=== PATIENT | female | born 1945 | race Caucasian/White ===

== ENCOUNTER → 2017-03-02 | Outpatient (CLI) | payer MEDICARE, BC ==
[2011-12-13 22:40] VITALS: BP 145/75
[~2017-03-02] MED LIST: CALCIUM 600600 M2 PO; DUO-KAPS1 CAP PO; FLORINEF ACETA0.1 MG PO; LEVOTHYROXINE0.1 MG PO; LEXAPRO5 MG PO; MIDODRINE HCL5 MG PO; NORCO 325 MG-51 TA1 PO; VITAMIN D1000 IU PO
== END ==
LOC: LAB 15:09
DX: J30.9 Allergic rhinitis, unspecified (principal)

== ENCOUNTER → 2017-07-14 | Outpatient (CLI) | payer MEDICARE, BC ==
[2011-12-13 22:40] VITALS: BP 145/75
== END ==
LOC: LAB 11:50
DX: I49.5 Sick sinus syndrome (principal); C50.919 Malignant neoplasm of unspecified site of unspecified female breast; E78.2 Mixed hyperlipidemia; E03.4 Atrophy of thyroid (acquired); M81.0 Age-related osteoporosis without current pathological fracture; Z00.00 Encounter for general adult medical examination without abnormal findings; R55 Syncope and collapse

== ENCOUNTER → 2017-07-21 | Outpatient (CLI) | payer MEDICARE, BC ==
[2011-12-13 22:40] VITALS: BP 145/75
== END ==
LOC: RAD 09:01
DX: R19.04 Left lower quadrant abdominal swelling, mass and lump (principal)

== ENCOUNTER → 2017-09-22 | Day surgery (SDC) | payer MEDICARE, BC ==
[2011-12-13 22:40] VITALS: BP 145/75
== END ==
LOC: MSO 10:39
DX: K58.0 Irritable bowel syndrome with diarrhea (principal); K57.30 Diverticulosis of large intestine without perforation or abscess without bleeding; A04.9 Bacterial intestinal infection, unspecified
CPT/HCPCS: 00810; A4649; J7120

== ENCOUNTER → 2017-10-05 | Outpatient (CLI) | payer MEDICARE, BC ==
[2011-12-13 22:40] VITALS: BP 145/75
[2017-10-05 15:20] LABS: ALBUMIN 4.1 g/dL (3.5-5.0); BUN/CREATININE RATIO 14.6 (6.0-26.0); CALCIUM 9.6 mg/dL (8.4-10.2); POTASSIUM 4.2 mmol/L (3.6-5.0); TOTAL BILIRUBIN 0.8 mg/dL (0.2-1.3); TOTAL PROTEIN 7.7 g/dL (6.3-8.2)
[2017-10-05 15:31] LABS: EOS # 0.2 (0.04-0.40); EOS % 2.6 % (1.0-5.0); HEMATOCRIT 40.1 % (37.0-47.0); HEMOGLOBIN 13.3 g/dL (12.5-16.0); LYMPH# 1.2 (1.50-4.00); MEAN CELL VOLUME 90 fl (78-100); MEAN CORPUSCULAR HEMOGLOBIN 30 pg (27-31); MEAN CORPUSCULAR HGB CONC 33 g/dL (33-37); MEAN PLATELET VOLUME 9.2 fl (7.4-10.4); MONO # 0.5 (0.20-0.80); NEU # 4.7 (1.40-6.50); PLATELET COUNT 253 K/mm3 (130-400); RED BLOOD COUNT 4.45 M/mm3 (4.10-5.30); RED CELL DISTRIBUTION WIDTH 12.7 % (11.5-14.5); WHITE BLOOD COUNT 6.6 K/mm3 (4.8-10.8)
== END ==
LOC: LAB 14:14
PROVIDERS: Family Medicine
DX: Z00.00 Encounter for general adult medical examination without abnormal findings (principal); E78.2 Mixed hyperlipidemia; E03.4 Atrophy of thyroid (acquired)

== ENCOUNTER → 2018-01-11 | Outpatient (CLI) | payer MEDICARE, BC ==
[2011-12-13 22:40] VITALS: BP 145/75
== END ==
LOC: LAB 15:00
DX: E03.4 Atrophy of thyroid (acquired) (principal)

== ENCOUNTER → 2018-03-02 | Outpatient (CLI) | payer MEDICARE, BC ==
[2011-12-13 22:40] VITALS: BP 145/75
== END ==
LOC: LAB 14:30
DX: E03.9 Hypothyroidism, unspecified (principal)

== ENCOUNTER → 2018-03-05 | Outpatient (CLI) | payer MEDICARE, BC ==
[2011-12-13 22:40] VITALS: BP 145/75
[2018-03-05 16:10] LABS: EOS # 0.2 (0.04-0.40); EOS % 3.2 % (1.0-5.0); HEMATOCRIT 40.6 % (37.0-47.0); HEMOGLOBIN 13.3 g/dL (12.5-16.0); LYMPH# 1.6 (1.50-4.00); MEAN CELL VOLUME 91 fl (78-100); MEAN CORPUSCULAR HEMOGLOBIN 30 pg (27-31); MEAN CORPUSCULAR HGB CONC 33 g/dL (33-37); MEAN PLATELET VOLUME 8.9 fl (7.4-10.4); MONO # 0.6 (0.20-0.80); NEU # 4.7 (1.40-6.50); PLATELET COUNT 230 K/mm3 (130-400); RED BLOOD COUNT 4.46 M/mm3 (4.10-5.30); RED CELL DISTRIBUTION WIDTH 13.4 % (11.5-14.5); WHITE BLOOD COUNT 7.2 K/mm3 (4.8-10.8)
[2018-03-05 16:23] LABS: ALBUMIN 4.4 g/dL (3.5-5.0); BUN/CREATININE RATIO 14.5 (6.0-26.0); CALCIUM 9.5 mg/dL (8.4-10.2); POTASSIUM 4.4 mmol/L (3.6-5.0); TOTAL BILIRUBIN 0.6 mg/dL (0.2-1.3); TOTAL PROTEIN 8.6 g/dL (6.3-8.2)
== END ==
LOC: LAB 15:54
PROVIDERS: Family Medicine
DX: E78.2 Mixed hyperlipidemia (principal); I49.5 Sick sinus syndrome; E03.4 Atrophy of thyroid (acquired); R55 Syncope and collapse

== ENCOUNTER → 2018-06-08 | Outpatient (CLI) | payer MEDICARE, BC ==
[2011-12-13 22:40] VITALS: BP 145/75
== END ==
LOC: RAD 12:00
DX: M19.072 Primary osteoarthritis, left ankle and foot (principal)

== ENCOUNTER → 2018-06-22 | Outpatient (CLI) | payer MEDICARE, BC ==
[2011-12-13 22:40] VITALS: BP 145/75
[2018-06-22 16:10] LABS: ALBUMIN 4.3 g/dL (3.5-5.0); BUN/CREATININE RATIO 17.9 (6.0-26.0); CALCIUM 9.5 mg/dL (8.4-10.2); POTASSIUM 4.1 mmol/L (3.6-5.0); TOTAL BILIRUBIN 0.5 mg/dL (0.2-1.3); TOTAL PROTEIN 7.8 g/dL (6.3-8.2)
== END ==
LOC: LAB 15:10
PROVIDERS: Family Medicine
DX: E03.9 Hypothyroidism, unspecified (principal); E03.4 Atrophy of thyroid (acquired); E55.9 Vitamin D deficiency, unspecified; E56.9 Vitamin deficiency, unspecified

== ENCOUNTER → 2018-07-06 | Outpatient (CLI) | payer MEDICARE, BC ==
[2018-07-02 20:26] VITALS: BP 132/93
[~2018-07-06] MED LIST changes: +PRILOSEC 20MG20 MG PO
== END ==
LOC: MAMMO 13:00 → RAD 13:00
DX: Z13.820 Encounter for screening for osteoporosis (principal); M81.0 Age-related osteoporosis without current pathological fracture; Z85.3 Personal history of malignant neoplasm of breast

== ENCOUNTER 2018-08-25 14:10 | Outpatient (RCR) | payer MEDICARE, BC ==
[2018-07-02 20:26] VITALS: BP 132/93
== END 2018-09-15 14:14 ==
LOC: OPPGERO 14:10
DX: F41.1 Generalized anxiety disorder (principal); F32.9 Major depressive disorder, single episode, unspecified; E03.9 Hypothyroidism, unspecified; K21.9 Gastro-esophageal reflux disease without esophagitis; Z85.3 Personal history of malignant neoplasm of breast; K64.8 Other hemorrhoids; K58.9 Irritable bowel syndrome, unspecified; G47.33 Obstructive sleep apnea (adult) (pediatric); M19.90 Unspecified osteoarthritis, unspecified site; M81.0 Age-related osteoporosis without current pathological fracture; G47.61 Periodic limb movement disorder; I49.5 Sick sinus syndrome; R55 Syncope and collapse; Z63.8 Other specified problems related to primary support group; Z60.8 Other problems related to social environment; Z79.2 Long term (current) use of antibiotics; Z79.899 Other long term (current) drug therapy

== ENCOUNTER 2018-09-16 09:16 | Outpatient (RCR) | payer MEDICARE, BC ==
[2018-07-02 20:26] VITALS: BP 132/93
== END 2018-10-15 15:12 ==
LOC: OPPGERO 09:16
DX: F41.1 Generalized anxiety disorder (principal); F33.9 Major depressive disorder, recurrent, unspecified; E03.9 Hypothyroidism, unspecified; K21.9 Gastro-esophageal reflux disease without esophagitis; Z85.3 Personal history of malignant neoplasm of breast; K64.8 Other hemorrhoids; K58.9 Irritable bowel syndrome, unspecified; E66.9 Obesity, unspecified; G47.33 Obstructive sleep apnea (adult) (pediatric); M19.90 Unspecified osteoarthritis, unspecified site; M81.0 Age-related osteoporosis without current pathological fracture; G47.61 Periodic limb movement disorder; I49.5 Sick sinus syndrome; R55 Syncope and collapse; Z63.9 Problem related to primary support group, unspecified; Z60.8 Other problems related to social environment; Z79.2 Long term (current) use of antibiotics; Z79.899 Other long term (current) drug therapy

== ENCOUNTER → 2018-09-28 | Outpatient (CLI) | payer MEDICARE, BC ==
[2018-07-02 20:26] VITALS: BP 132/93
== END ==
LOC: LAB 15:39
PROVIDERS: Nurse Practitioner
DX: E03.9 Hypothyroidism, unspecified (principal)

== ENCOUNTER 2018-10-18 08:09 | Outpatient (RCR) | payer MEDICARE, BC ==
[2018-07-02 20:26] VITALS: BP 132/93
== END 2018-11-15 12:09 ==
LOC: OPPGERO 08:09
DX: F33.1 Major depressive disorder, recurrent, moderate (principal); F41.1 Generalized anxiety disorder; E03.9 Hypothyroidism, unspecified; K21.9 Gastro-esophageal reflux disease without esophagitis; Z85.3 Personal history of malignant neoplasm of breast; K64.8 Other hemorrhoids; K58.9 Irritable bowel syndrome, unspecified; E66.9 Obesity, unspecified; G47.33 Obstructive sleep apnea (adult) (pediatric); M19.90 Unspecified osteoarthritis, unspecified site; M81.0 Age-related osteoporosis without current pathological fracture; G47.61 Periodic limb movement disorder; I49.5 Sick sinus syndrome; R55 Syncope and collapse; Z63.9 Problem related to primary support group, unspecified; Z60.9 Problem related to social environment, unspecified; Z65.9 Problem related to unspecified psychosocial circumstances; Z87.891 Personal history of nicotine dependence; Z79.2 Long term (current) use of antibiotics; Z79.899 Other long term (current) drug therapy

== ENCOUNTER 2018-11-17 09:47 | Outpatient (RCR) | payer MEDICARE, BC ==
[2018-07-02 20:26] VITALS: BP 132/93
== END 2018-12-16 13:28 ==
LOC: OPPGERO 09:47
DX: F41.1 Generalized anxiety disorder (principal); F33.9 Major depressive disorder, recurrent, unspecified; E03.9 Hypothyroidism, unspecified; K21.9 Gastro-esophageal reflux disease without esophagitis; K64.8 Other hemorrhoids; K58.9 Irritable bowel syndrome, unspecified; E78.5 Hyperlipidemia, unspecified; E66.9 Obesity, unspecified; G47.33 Obstructive sleep apnea (adult) (pediatric); M19.90 Unspecified osteoarthritis, unspecified site; M81.0 Age-related osteoporosis without current pathological fracture; G47.61 Periodic limb movement disorder; I49.5 Sick sinus syndrome; Z63.9 Problem related to primary support group, unspecified; Z60.9 Problem related to social environment, unspecified; Z65.9 Problem related to unspecified psychosocial circumstances; Z85.3 Personal history of malignant neoplasm of breast; Z79.2 Long term (current) use of antibiotics; Z79.899 Other long term (current) drug therapy

== ENCOUNTER 2018-12-17 08:17 | Outpatient (RCR) | payer MEDICARE, BC ==
[2018-07-02 20:26] VITALS: BP 132/93
== END 2019-01-13 13:40 ==
LOC: OPPGERO 08:17
DX: F33.1 Major depressive disorder, recurrent, moderate (principal); F41.1 Generalized anxiety disorder; E03.9 Hypothyroidism, unspecified; K21.9 Gastro-esophageal reflux disease without esophagitis; Z85.3 Personal history of malignant neoplasm of breast; K64.8 Other hemorrhoids; K58.9 Irritable bowel syndrome, unspecified; G47.33 Obstructive sleep apnea (adult) (pediatric); M19.90 Unspecified osteoarthritis, unspecified site; M81.0 Age-related osteoporosis without current pathological fracture; G47.61 Periodic limb movement disorder; I49.5 Sick sinus syndrome; R55 Syncope and collapse; Z63.9 Problem related to primary support group, unspecified; Z60.8 Other problems related to social environment; Z79.2 Long term (current) use of antibiotics; Z79.899 Other long term (current) drug therapy; Z87.891 Personal history of nicotine dependence

== ENCOUNTER → 2018-12-29 | Outpatient (CLI) | payer MEDICARE, BC ==
[2018-07-02 20:26] VITALS: BP 132/93
== END ==
LOC: LAB 13:55
PROVIDERS: Family Medicine
DX: E03.9 Hypothyroidism, unspecified (principal)

== ENCOUNTER 2019-01-14 13:49 | Outpatient (RCR) | payer MEDICARE, BC ==
[2018-07-02 20:26] VITALS: BP 132/93
== END 2019-02-11 15:18 ==
LOC: OPPGERO 13:49
DX: F33.9 Major depressive disorder, recurrent, unspecified (principal); F41.1 Generalized anxiety disorder; E03.9 Hypothyroidism, unspecified; K21.9 Gastro-esophageal reflux disease without esophagitis; Z85.3 Personal history of malignant neoplasm of breast; K64.8 Other hemorrhoids; K58.9 Irritable bowel syndrome, unspecified; E78.5 Hyperlipidemia, unspecified; E66.9 Obesity, unspecified; G47.33 Obstructive sleep apnea (adult) (pediatric); M19.90 Unspecified osteoarthritis, unspecified site; M81.0 Age-related osteoporosis without current pathological fracture; I49.5 Sick sinus syndrome; G47.61 Periodic limb movement disorder; R55 Syncope and collapse

== ENCOUNTER 2019-02-14 08:49 | Outpatient (RCR) | payer MEDICARE, BC ==
[2018-07-02 20:26] VITALS: BP 132/93
== END 2019-03-15 14:42 ==
LOC: OPPGERO 08:49
DX: F33.41 Major depressive disorder, recurrent, in partial remission (principal); F41.8 Other specified anxiety disorders; R69 Illness, unspecified; R55 Syncope and collapse; E03.9 Hypothyroidism, unspecified; K21.9 Gastro-esophageal reflux disease without esophagitis; K64.8 Other hemorrhoids; K58.9 Irritable bowel syndrome, unspecified; E78.5 Hyperlipidemia, unspecified; E66.9 Obesity, unspecified; G47.33 Obstructive sleep apnea (adult) (pediatric); M19.90 Unspecified osteoarthritis, unspecified site; M81.0 Age-related osteoporosis without current pathological fracture; I49.5 Sick sinus syndrome; Z85.3 Personal history of malignant neoplasm of breast

== ENCOUNTER → 2019-03-01 | Outpatient (CLI) | payer MEDICARE, BC ==
[2018-07-02 20:26] VITALS: BP 132/93
== END ==
LOC: RAD 15:07
DX: M50.321 Other cervical disc degeneration at C4-C5 level (principal); M40.50 Lordosis, unspecified, site unspecified

== ENCOUNTER → 2019-03-25 | Outpatient (CLI) | payer MEDICARE, BC ==
[2018-07-02 20:26] VITALS: BP 132/93
[2019-03-25 16:06] LABS: EOS # 0.2 (0.04-0.40); HEMATOCRIT 39.5 % (37.0-47.0); HEMOGLOBIN 12.7 g/dL (12.5-16.0); LYMPH# 1.4 (1.50-4.00); MEAN CELL VOLUME 91 fl (78-100); MEAN CORPUSCULAR HEMOGLOBIN 29 pg (27-31); MEAN CORPUSCULAR HGB CONC 32 g/dL (33-37); MEAN PLATELET VOLUME 8.8 fl (7.4-10.4); MONO # 0.6 (0.20-0.80); NEU # 4.4 (1.40-6.50); PLATELET COUNT 210 K/mm3 (130-400); RED BLOOD COUNT 4.33 M/mm3 (4.10-5.30); RED CELL DISTRIBUTION WIDTH 13.1 % (11.5-14.5); WHITE BLOOD COUNT 6.7 K/mm3 (4.8-10.8)
[2019-03-25 16:55] LABS: CALCIUM 10.2 mg/dL (8.4-10.2); POTASSIUM 4.1 mmol/L (3.5-5.1); TOTAL BILIRUBIN 0.4 mg/dL (0.2-1.2); TOTAL PROTEIN 7.6 g/dL (6.2-8.1)
== END ==
LOC: LAB 15:45
PROVIDERS: Family Medicine
DX: Z00.00 Encounter for general adult medical examination without abnormal findings (principal); E78.5 Hyperlipidemia, unspecified; E03.9 Hypothyroidism, unspecified; E56.9 Vitamin deficiency, unspecified; I49.5 Sick sinus syndrome; R55 Syncope and collapse

== ENCOUNTER → 2019-04-05 | Outpatient (CLI) | payer MEDICARE, BC ==
[2018-07-02 20:26] VITALS: BP 132/93
== END ==
LOC: RAD 16:45
DX: R05 Cough (principal); Z95.0 Presence of cardiac pacemaker

== ENCOUNTER → 2019-12-27 | Outpatient (CLI) | payer MEDICARE, BC ==
[2018-07-02 20:26] VITALS: BP 132/93
[2019-12-27 15:36] LABS: EOS # 0.2 (0.04-0.40); EOS % 2.9 % (1.0-5.0); HEMATOCRIT 40.4 % (37.0-47.0); HEMOGLOBIN 13.3 g/dL (12.5-16.0); LYMPH# 1.4 (1.50-4.00); MEAN CELL VOLUME 91 fl (78-100); MEAN CORPUSCULAR HEMOGLOBIN 30 pg (27-31); MEAN CORPUSCULAR HGB CONC 33 g/dL (33-37); MONO # 0.6 (0.20-0.80); NEU # 3.7 (1.40-6.50); PLATELET COUNT 203 K/mm3 (130-400); RED BLOOD COUNT 4.45 M/mm3 (4.10-5.30); RED CELL DISTRIBUTION WIDTH 12.7 % (11.5-14.5); WHITE BLOOD COUNT 5.9 K/mm3 (4.8-10.8)
[2019-12-27 15:46] LABS: ALBUMIN 4.1 g/dL (3.4-4.8); POTASSIUM 3.6 mmol/L (3.5-5.1)
[2019-12-27 15:47] LABS: CALCIUM 8.9 mg/dL (8.3-10.5)
[2019-12-27 15:48] LABS: TOTAL PROTEIN 7.9 g/dL (6.2-8.1)
[2019-12-27 15:50] LABS: TOTAL BILIRUBIN 0.4 mg/dL (0.2-1.2)
== END ==
LOC: LAB 15:21
PROVIDERS: Family Medicine
DX: E03.9 Hypothyroidism, unspecified (principal); M81.0 Age-related osteoporosis without current pathological fracture

== ENCOUNTER → 2020-06-12 | Outpatient (CLI) | payer MEDICARE, BC ==
[2018-07-02 20:26] VITALS: BP 132/93
[2020-06-12 14:57] LABS: EOS # 0.2 (0.04-0.40); EOS % 2.2 % (1.0-5.0); HEMATOCRIT 41.4 % (37.0-47.0); HEMOGLOBIN 13.5 g/dL (12.5-16.0); LYMPH# 1.1 (1.50-4.00); MEAN CELL VOLUME 91 fl (78-100); MEAN CORPUSCULAR HEMOGLOBIN 30 pg (27-31); MEAN CORPUSCULAR HGB CONC 33 g/dL (33-37); MEAN PLATELET VOLUME 8.9 fl (7.4-10.4); MONO # 0.6 (0.20-0.80); NEU # 4.8 (1.40-6.50); PLATELET COUNT 231 K/mm3 (130-400); RED BLOOD COUNT 4.55 M/mm3 (4.10-5.30); RED CELL DISTRIBUTION WIDTH 12.8 % (11.5-14.5); WHITE BLOOD COUNT 6.7 K/mm3 (4.8-10.8)
[2020-06-12 15:04] LABS: ALBUMIN 4.2 g/dL (3.4-4.8); POTASSIUM 4.4 mmol/L (3.5-5.1)
[2020-06-12 15:05] LABS: CALCIUM 9.8 mg/dL (8.3-10.5)
[2020-06-12 15:07] LABS: TOTAL PROTEIN 8.2 g/dL (6.2-8.1)
[2020-06-12 15:08] LABS: TOTAL BILIRUBIN 0.7 mg/dL (0.2-1.2)
== END ==
LOC: LAB 14:41
PROVIDERS: Family Medicine
DX: Z00.00 Encounter for general adult medical examination without abnormal findings (principal); I49.5 Sick sinus syndrome; E78.5 Hyperlipidemia, unspecified; E03.9 Hypothyroidism, unspecified

== ENCOUNTER 2022-12-09 18:36 | Emergency (ER) | payer MEDICARE, BC ==
[~2022-12-09] VITALS: Ht 157.5 cm; Wt 71.0 kg
[~2022-12-09 18:36] MED LIST changes: -LEVOTHYROXINE0.1 MG PO; +LEVOTHYROXINE75 MCG PO
[2022-12-09 19:42] VITALS: BP 146/78
[2022-12-09] MEDS ORDERED: EUTHYROX75 MCG PO (19:53)
[2022-12-09] MEDS ORDERED: LEXAPRO 10MG10 MG PO (19:54)
[2022-12-09] MEDS ORDERED: B12-FOLIC ACID1 EACH PO (19:55)
[2022-12-09] MEDS ORDERED: PROBIOTIC1 EAC2 PO (19:55)
[2022-12-09] MEDS ORDERED: VIT D3 (19:55)
[2022-12-09] MEDS ORDERED: CLARITIN10 M1 PO (19:56)
[2022-12-09] MEDS ORDERED: ONE DAILY WITH1 EACH PO (19:56)
== END 2022-12-09 21:34 | disposition home or self-care (01) ==
LOC: ED 18:36
DX: S01.111A Laceration without foreign body of right eyelid and periocular area, initial encounter (principal); R07.89 Other chest pain; Z91.040 Latex allergy status; Z23 Encounter for immunization; W01.198A Fall on same level from slipping, tripping and stumbling with subsequent striking against other object, initial encounter
CPT/HCPCS: 90715

== ENCOUNTER → 2022-12-16 | Outpatient (CLI) | payer MEDICARE, BC ==
[~2022-12-16] MED LIST changes: +B12-FOLIC ACID1 EACH PO; +CLARITIN10 M1 PO; +EUTHYROX75 MCG PO; +LEXAPRO 10MG10 MG PO; +ONE DAILY WITH1 EACH PO; +PROBIOTIC1 EAC2 PO; +VIT D3
== END ==
LOC: AMSURD 14:05
DX: Z48.02 Encounter for removal of sutures (principal)